=== PATIENT | male | born 1965 | race Caucasian/White ===

== ENCOUNTER 2023-04-05 14:33 | Inpatient (IN) | payer MEDICAID, SELFPAY ==
[2023-04-05] VITALS (24 sets, daily range): BP systolic 113–143; BP diastolic 74–94; PULSE 90–115; RESP 16–26; TEMP 37.2–37.4; O2SAT 93–100
--- NOTE | ~2023-04-05 | CT_ITS ---
EXAMINATION: CTA chest PE protocol DATE: 04/05/2023 20:04 INDICATION: dyspnea, cough, tachycardia, tachypnea, hypoxia TECHNIQUE: Computed tomography angiography (CTA) of the chest was performed with 100 mL Omnipaque-350 intravenous contrast timed to evaluate the pulmonary arteries. Coronal maximum intensity projection 3D-reconstructions were created by the technologist. The dose-length product (DLP) was 303.62 mGy-cm. Automated exposure control and iterative reconstruction technique were employed. COMPARISON: X-ray chest, same date; CT renal stone 12/28/2008. FINDINGS: Lung parenchyma and airways: Minimal bibasilar scar/atelectasis. Emphysematous change. Calcified gran ulomas. Minimal secretions in the trachea. Pleura: Unremarkable. Thoracic inlet, axillae and chest wall: Unremarkable. Thoracic aorta: No significant dilation. Mild arch calcification. 4 mm penetrating ulcer in the arch, depth 2-3 mm. The left vertebral artery origin is directly off the arch. Mediastinum: Normal. Heart and pericardium: Normal. Coronary artery calcifications: Mild. Upper abdomen: Renal atrophy. Simple left upper pole cyst. Nonobstructing left upper pole calcificati on. Bones: No acute osseous finding. Pulmonary arteries: Study quality: Motion artifact is present, which limits evaluation of segmental a nd more distal vessels, particularly in the lower lobes. No pulmonary emboli detected. IMPRESSION: Motion artifact limits evaluation, such that nonocclusive segmental or subsegmental emboli could be m issed. No central embolus detected. 4 mm penetrating ulcer in the aortic arch. Recommend vascular referral. Reviewed, dictated and finalized at location K. IMPRESSION: Motion artifact limits evaluation, such that nonocclusive segmental or subsegme ntal emboli could be missed. No central embolus detected. 4 mm penetrating ulcer in the aortic arch. Recommend vascular referral.
--- NOTE | ~2023-04-05 | CT_ITS ---
EXAMINATION: CT abdomen pelvis wo con DATE: 04/06/2023 15:33 INDICATION: Abdominal pain. TECHNIQUE: Computed tomography (CT) of the abdomen and pelvis was performed without intravenous contr ast. Automated exposure control and iterative reconstruction technique were employed. The dose-length product was 292.37 mGy-cm. COMPARISON: CT abdomen and pelvis 12/28/2008 FINDINGS: The visualized portions of the lung bases demonstrate mild atelectasis. There is mild emphy sema. There are trace pleural effusions. The heart size is normal. No pericardial effusion. The liver is normal. The gallbladder is contracted. The spleen, pancreas, and adrenal glands are normal. There is moderate atrophy of right kidney. There are parenchymal calcifications in right kidney. There is a 2 mm stone in right kidney. There is mild right hydronephrosis. There is a 9 mm stone in proximal r ight ureter. There are parenchymal calcifications in left kidney. There are approximately 4 stones in left kidney measuring up to 3 mm. There is a 2.4 cm cyst in left kidney. There are no dilated loops of bowel. The appendix is not visualized. There is trace pelvic ascites. There are no pathologically enlarged lymph nodes. There is severe lower lumbar spondylosis. IMPRESSION: 1. 9 mm stone in proximal right ureter with mild right hydronephrosis. 2. Bilateral nonobstructing kidney stones. Reviewed, dictated and finalized at location A.
--- NOTE | ~2023-04-05 | XR_ITS ---
EXAMINATION: XR chest 1V portable Exam Date/Time: 04/05/2023 16:15 CDT HISTORY: sob, CP, FEVER, WEAKNESS, ALL SYMPTONS FOR 4 DAYS, SMOKER Comparison: 05/05/2014. RESULT: Lines, tubes, and devices: None. Lungs and pleura: Clear. Cardiomediastinal silhouette: Stable. Other: No acute osseous or upper abdominal finding. IMPRESSION: No acute cardiopulmonary process. Reviewed, dictated and finalized at location K.
--- NOTE | 2023-04-05 15:20 | PC.NURSE ---
pt rolled himself back inside after smoking
--- NOTE | 2023-04-05 15:53 | ECG_ITS ---
Measurements Intervals [place] Rate: 108 P: 74 MO: 141 QRS: 44 QRSD: 93 T: 76 QT: 294 QTc: 394 Interpretive Statements SINUS TACHYCARDIA POSSIBLE RIGHT ATRIAL ENLARGEMENT [0.25mV P WAVE] POSSIBLE LEFT ATRIAL ENLARGEMENT [-0.1mV P WAVE IN V1/V2] POSSIBLE LEFT VENTRICULAR HYPERTROPHY [VOLTAGE CRITERIA PLUS LAE OR QRS WIDENING] NONSPECIFIC T-WAVE ABNORMALITY NO PREVIOUS ECG AVAILABLE FOR COMPARISON Electronically Signed On 04-06-2023 8:51:16 CDT by Rajni Arreaga M.D.
[2023-04-05 16:10] LABS: Basophils Absolute Auto 0.1 K/mm3 (0.0-0.1); Basophils Percent Auto 0.3 % (0.2-1.2); Eosinophils Percent Auto 0.2 % (0-4.4); Hematocrit 45.1 % (42.0-52.0); Hemoglobin 15.1 g/dL (14.0-18.0); Immature Granulocyte Absolute 0.29 K/mm3 (0.00-0.031); Immature Granulocyte Percent A 1.7 % (0-0.5); Lymphocytes Absolute Auto 0.85 K/mm3 (0.9-3.2); Lymphocytes Percent Auto 4.9 % (18.3-44.2); Mean Corpuscular HGB Conc 33.5 g/dl (32-36); Mean Corpuscular Hemoglobin 28.9 pg (26-34); Mean Corpuscular Volume 86.2 fl (80-100); Mean Platelet Volume 11.1 fl (7.4-10.4); Monocytes Absolute Auto 0.9 K/mm3 (0.1-0.6); Monocytes Percent Auto 5.3 % (2.6-8.5); Neutrophils Absolute Auto 15.2 K/mm3 (1.3-6.7); Neutrophils Percent Auto 87.6 % (45.5-73.1); Platelet Count Result 190 k/mm3 (150-375); Red Blood Count 5.23 M/mm3 (4.6-6.20); Red Cell Distribution Width 14.1 % (11.5-14.5); White Blood Count 17.3 K/mm3 (4.5-10.0)
[2023-04-05] MEDS: LACTATED RINGERS 1,000 ML 999 ML IV CONT ×2 (16:36→18:16)
[2023-04-05 17:20] LABS: Alanine Aminotransferase 27 U/L (6-50); Albumin Level 3.1 g/dL (3.5-5.1); Alkaline Phosphatase 82 U/L (38-126); Anion Gap 0 mmol/L (8-16); Aspartate Amino Transferase 31 U/L (17-59); Bilirubin,Total 0.8 mg/dL (0.2-1.3); Blood Urea Nitrogen 29 mg/dL (9-20); Calcium 8.7 mg/dL (8.4-10.2); Carbon Dioxide 27 mmol/L (22-30); Chloride 97 mmol/L (98-107); Estimated CRCL calculation 53 ml/min; Estimated Glomerular Filt Rate 48; Glucose 113 mg/dL (65-110); Magnesium 1.9 mg/dL (1.6-2.3); Potassium 3.8 mmol/L (3.4-5.0); Sodium 124 mmol/L (137-145)
[2023-04-05 17:32] LABS: Troponin I 0.019 ng/mL (0.000-0.034)
[2023-04-05 17:43] LABS: Influenza A QL RT-PCR Negative (Negative); Influenza B QL RT-PCR Negative (Negative); SARS-CoV-2 RNA PCR Negative (Negative)
--- NOTE | 2023-04-05 17:56 | ED.GENADULT ---
HPI - General Adult General Chief complaint: Shortness of Breath/Dyspnea Stated complaint: cough and SOB x 4 days - exposure to COVID Time Seen by Provider: 04/05/23 16:22 Source: patient Limitations: no limitations History of Present Illness HPI narrative: Patient is a 57-year-old male present to the emergency department complaining of cough and shortness of breath and believes that he has COVID. Patient states she has had some associated chills. Patient notes that the cough has been present for the past 4 days without any sputum production. Patient states that he had an exposure to COVID through his roommate. Patient admits to being vaccinated for COVID-19 with 2 shots without any boosters. Patient admits to some mild associated shortness of breath over the same duration as the cough in addition to a sore throat. Patient denies rhinorrhea, nasal congestion, chest pain, abdominal pain, vomiting, nausea, diarrhea, rash, dysuria, hematuria, urinary frequency, urinary urgency, numbness, weakness, ear pain, eye pain, neck pain. Patient does admit to some generalized bodyaches. Patient denies trying any medications for his cough. Patient admits to a subjective fever but has not taken his temperature. Of note patient admits to using methamphetamine regularly via smoking or snorting and admits to a history of IV drug use in the past. Related Data Allergies Allergy/AdvReac Type Severity Reaction Status Date / Time No Known Allergies Allergy Unverified 04/05/23 15:37 PMFSH Comments Patient admits to regular methamphetamine use via smoking and snorting with most recent use being a couple days ago in addition patient has a history of IV drug use. Patient admits to regular tobacco use. Patient denies alcohol consumption. Patient admits to a past surgical history of a kidney stone being removed. Patient denies any other past medical history outside of a kidney stone. Patient admits to having a primary care physician being Dr. Hayes. Patient denies any medication use. Patient denies any allergies. Exam Const: General: ill appearing Orientation/consciousness: patient oriented x3 HENMT: Head: normal to inspection Mouth: Yes dry mucous membranes Throat: posterior oropharynx normal Eyes: Conjunctivae: conjunctivae normal Pupils: Equal, round and reactive pupils present EOM: EOMs intact bilaterally Neck: Neck: no meningeal signs Resp: Effort & Inspection: normal respiratory effort and tachypneic Auscultation: clear to auscultation bilaterally, no wheezes and diminished lung sounds Cardio: Rate: tachycardic Rhythm: regular rhythm Heart sounds: Murmur heart sound present continuous and systolic GI: Inspection: non-distended GI Palp: Yes Soft to palpation, No Tenderness to palpation present (GI), No Guarding due to palpation present (GI), No Rigid due to palpation, No Hernia present, No Palpable mass present and No Rebound tenderness present Back/Spine/Pelvis: Back: no CVA tenderness Skin: General skin exam: normal color Other: diaphoretic Neuro: General: patient oriented x3, no meningeal signs and no focal motor deficits Extrem: General: no pedal edema Course Vital Signs Vital signs: Vital Signs Temperature 99.0 F 04/05/23 15:33 Pulse Rate 113 H 04/05/23 15:33 Respiratory Rate 16 04/05/23 15:33 Blood Pressure 113/94 H 04/05/23 15:33 Pulse Oximetry 100 04/05/23 15:33 Oxygen Delivery Room Air 04/05/23 15:33 Temperature 98.9 F 04/05/23 20:12 Pulse Rate 90 04/05/23 20:48 Respiratory Rate 21 H 04/05/23 20:48 Blood Pressure 135/87 04/05/23 22:00 Pulse Oximetry 100 04/05/23 22:00 Oxygen Delivery Room Air 04/05/23 15:53 Medical Decision Making MDM Narrative Medical decision making narrative: Patient is a 57-year-old male present to the emergency department with the above-stated complaint. Vital signs concerning for tachycardia. Patient appears dehydrated and did mil
[2023-04-05] MEDS: ACETAMINOPHEN 500 MG TABLET 1000 MG PO (18:13)
[2023-04-05 18:22] LABS: Lactic Acid Reflex 0.9 mmol/L (0.7-2.0)
[2023-04-05 18:23] LABS: Lipase 28 U/L (23-300)
[2023-04-05 18:24] LABS: Prothrombin Time 14.1 Seconds (11.1-14.7)
[2023-04-05 18:25] LABS: Partial Thromboplastin Time 36.7 SECONDS (22.3-36.8)
--- NOTE | 2023-04-05 18:28 | PC.NURSE ---
Pt reports urinating in the sink when asked if he had to use the restroom since nobody made it in the room after he pressed the call light
[2023-04-05] MEDS: AZITHROMYCIN 500 MG/NS 250 ML 500 MG/250 ML BAG 250 MG IVPB (18:57)
[2023-04-05 19:06] LABS: CRP 31.2 mg/dL (<1.0)
[2023-04-05 19:15] LABS: Appearance Urine Clear (Clear); Bacteria Urine None Seen /hpf; Bilirubin Urine Negative (Negative); Blood Urine 2+ (Negative); Color Urine Yellow (Yellow); Glucose Urine UA Negative (Negative); Ketones Urine Negative (Negative); Leukocyte Esterase Ur 2+ LEU/UL (Negative); Nitrate Urine Negative (Negative); Non Pathogenic Casts 0-2; Protein Urine 2+ mg/dL (Negative); Squamous Epithelial Cell Urine None seen /hpf (Few); WBC Urine 21-50 /hpf
[2023-04-05 19:20] LABS: Add Urine Microscopic? YES
[2023-04-05 19:42] LABS: NT Pro B Type Natriuretic Pept 138 pg/mL (19.9-100)
[2023-04-05 20:37] LABS: Troponin I 0.016 ng/mL (0.000-0.034)
--- NOTE | 2023-04-06 | ECHO_ITS ---
Patient Info Name: Kishan Yates Age: 57 years : 1965 Gender: Male Ht: 73 in Wt: 161 lbs BSA: 1.93 m2 HR: 83 bpm BP: 156 / 98 mmHg Heart Rhythm: Sinus Rhythm Technical Quality: Fair Exam Date: 04/06/2023 4:24 PM Exam Location: [facility] Patient Status: Inpatient Admit Date: 04/05/2023 Staff Ordering Physician: Carmen Last APRN Manager Pet: Pat Rao RDCS Attending Provider: Williams Mendoza MD Referring Physician: Berhane ARENAS; Exam Type: CA echo doppler color flow Study Info Indications - r/o endocarditis Complete two-dimensional, color flow and Doppler transthoracic echocardiogram is performed. Summary 1. Complete two-dimensional, color flow and Doppler transthoracic echocardiogram is performed. 2. Left ventricular chamber dimension is normal. 3. Left ventricular systolic function is low normal, estimated at 50-55%. 4. There is mildly increased left ventricular wall thickness. 5. The left ventricular diastolic function is normal. 6. There is mild aortic valve stenosis with a peak velocity of 154 cm/s, mean gradient of 5 mmHg, and aortic valve area of 1.8 cm2. 7. There is mild aortic valve calcification. 8. There is mild mitral valve regurgitation. 9. The mitral valve annulus is mildly calcified. 10. The mitral valve has thickened leaflets. 11. There is mild tricuspid valve regurgitation. 12. Mild pulmonary hypertension, estimated pulmonary arterial systolic pressure is 36 mmHg. Left Ventricle Left ventricular chamber dimension is normal. Left ventricular systolic function is low normal, estimated at 50-55%. There is mildly increased left ventricular wall thickness. The left ventricular diastolic function is normal. Right Ventricle Right ventricular chamber dimension is normal. Right ventricular systolic function is normal. Left Atria Left atrial chamber dimension is normal. Right Atria Right atrial chamber dimension is normal. Atrial Septum Intact interatrial septum visualized by color flow imaging. Aortic Valve The aortic valve is trileaflet. There is mild aortic valve stenosis with a peak velocity of 154 cm/s, mean gradient of 5 mmHg, and aortic valve area of 1.8 cm2. There is trace aortic valve regurgitation. There is mild aortic valve calcification. Pulmonic Valve The pulmonic valve is normal. There is no pulmonic valve stenosis. There is trace pulmonic regurgitation. Mitral Valve The mitral valve has thickened leaflets. There is no mitral valve stenosis. There is mild mitral valve regurgitation. The mitral valve annulus is mildly calcified. Tricuspid Valve The tricuspid valve leaflets are normal. There is no significant tricuspid valve stenosis. There is mild tricuspid valve regurgitation. Mild pulmonary hypertension, estimated pulmonary arterial systolic pressure is 36 mmHg. Pericardium/Pleural The pericardium appears normal. There is no pericardial effusion. Inferior Vena Cava Dilated inferior vena cava with <50% collapse upon inspiration consistent with elevated right atrial pressure, 15 mmHg. Aorta The aortic root size at the sinus of Valsalva is normal. Left Ventricular Outflow Tract Name Value Normal LVOT 2D LVOT Diameter 2.0 cm LVOT Doppler
[2023-04-06 00:30] VITALS: BP 127/73; PULSE 90; RESP 18; TEMP 36.6; O2SAT 91
[2023-04-06 02:44] VITALS: O2SAT 92
[2023-04-06 06:00] VITALS: BP 156/98; PULSE 106; RESP 18; TEMP 36.8; O2SAT 91
[2023-04-06 06:02] LABS: Estimated CRCL calculation 54 ml/min; Estimated Glomerular Filt Rate 52
--- NOTE | 2023-04-06 09:43 | PM.IMHP ---
H&P: HPI History of Present Illness Date/Time: 04/06/23 09:43 Chief Complaint: Shortness of breath Narrative: This is a 57-year-old male with a past medical history of recurrent kidney stones x3 occurrences, polysubstance abuse, and history of IV drug use. He presents to the ER with complaints of shortness of breath with exertion making it difficult for him to complete his job. He has nonproductive cough and subjective fever and chills. He does say he has some mild chest pain. He states he has not been around any sick contacts. He does use meth daily typically snorting or smoking it. He says his IV drug use was years ago. He also smokes 1 and half to 2 packs per day and he denies EtOH use. 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 He has been in detention before. He denies any past surgical history besides interventions for his kidney stones. Chest x-ray shows no acute cardiopulmonary process, CTA shows a 4 mm penetrating ulcer in the aortic arch and vascular referral is recommended. ER physician spoke with vascular surgery and they do not feel that this needs emergent intervention. He will need to follow-up with vascular surgery as an outpatient. His blood cultures are positive for Gram-negative bacilli. He does have a leukocytosis of 17 and neutrophils are 87.6%. His sodium is 124, creatinine 1.5, and CRP is elevated 31.2. His UA shows 2+ leuks, 2+ protein, 2+ blood, and wbc's 21-50 with no bacteria seen. Nephrology was consulted for the low sodium and Cardiology consulted to see if ANASTACIO is warranted for potential endocarditis as source of infection. CT abdomen and pelvis was collected later this afternoon shows a right 9 mm ureteral stone with mild hydronephrosis and nonobstructing renal stones. Urology has been consulted and recommendations are appreciated. When I see him at bedside this morning he is drowsy and difficult to get to participate in my assessment. He begrudgingly answers my questions. He appears sick. He has some mild diaphoresis and skin is warm to the touch but he does not have a fever. He does not appear in any respiratory distress. He does endorse some right lower quadrant tenderness with deep palpation. He says that he is been eating and drinking appropriately and has no issues with stooling or urinating. He does say his urine has been rather concentrated. He denies any open wounds or sores on his body. He does have a headache but denies dizziness. He says that he has some chest pain and is short of breath with exertion. Later this afternoon around back to check on him and he is sitting up alert and talking with his family. He does not recall talking with me this morning he just knows that he was grumpy and did not want to deal with anyone. He appears better after IV hydration and initiation of antibiotics. The nursing staff state that he has been somewhat difficult to deal with today. There are reports of him potentially smoking in his room. Will write for nicotine patch. He seems to be easily agitated and given his substance abuse I would not be surprised if he were to try to leave AMA. Review of Systems Review of Systems: All systems reviewed & are unremarkable except as noted in HPI and below PMFSH Past Medical History Medical History (Updated 04/06/23 @ 17:13 by Carmen Last APRN) History of intravenous drug abuse Renal stone Surgical History Surgical History (Updated 04/06/23 @ 17:14 by Carmen Last APRN) History of cystoscopy Social History Social History Smoking status: Heavy tobacco smoker Tobacco type: cigarettes Second hand tobacco smoke exposure: Yes Alcohol intake: never Substance use type: amphetamines Other substance usage details: 1 wk ago Lack of Transportation: No Lack of Food: Never True Current Housing: I Have Housing Concerned About Future Housing: No Difficulty Paying
[2023-04-06] MEDS: cefTRIAXone 2 GM/NS 100 ML 2 GM/100 ML BAG IVPB (10:11)
[2023-04-06] MEDS: SODIUM CHLORIDE 0.9% IV 1,000 ML 100 ML IV CONT (10:11)
--- NOTE | 2023-04-06 11:03 | PM.CNCAR ---
Assessment and Plan Assessment and plan (1) Sepsis: Code(s): A41.9 - Sepsis, unspecified organism Status: Acute Assessment and Plan: Management of sepsis as per primary team. We are consulted for ANASTACIO given history of IV drug use. At this time, patient only meets 1 minor criteria of the modified Bennett criteria, therefore, he does not meet diagnostic clinical criteria for either possible infective endocarditis or definite infective endocarditis. Therefore, there is no indication for ANASTACIO at this time. Recommend following blood cultures at this time. If concerned about infective endocarditis, would first obtain a transthoracic echocardiogram. (2) Penetrating ulcer of aorta: Code(s): I71.9 - Aortic aneurysm of unspecified site, without rupture Status: Acute Assessment and Plan: CTA with 4mm penetrating ulcer in the aortic arch. ER doctor discussed this with [facility], who recommended discussion with Vascular Surgery service as this is typically managed by Vascular Surgery. ER then discussed the case with [facility] Dr. Rodriges who recommended outpatient follow up with Vascular Surgery, ASA, statin. Recommend ASA 81mg once daily. Recommend high intensity statin. Recommend outpatient follow up with Vascular Surgery. (3) Coronary artery calcification seen on CAT scan: Code(s): I25.10 - Atherosclerotic heart disease of [place] coronary artery without angina pectoris Status: Acute Assessment and Plan: Recommend ASA 81mg once daily. Recommend high intensity statin. History of Present Illness History of Present Illness Consult date/time: 04/06/23 11:03 Requesting physician: Carmen Last, VANDA Consult reason: Other (4mm aortic ulceration on CTA, IVDU hx, wanted ANASTACIO) Reason For Visit: sepsis Narrative: Reason for consult: 4mm aortic ulceration on CTA, IVDU hx, wanted ANASTACIO This is a 57-year-old male with regular methamphetamine use who presented with shortness of breath that began a few days ago. Also reports coughing and overall feeling ill. Patient was initially concerned about COVID as he had exposure through his roommate. Patient is admitted for sepsis. Has tachycardia and leukocytosis. WBC of 17. Chest CTA was done in ER which showed no obvious PE (limited by motion artifact), 4mm penetrating ulcer in the aortic arch, mild coronary artery calcifications. Regarding the penetrating ulcer in aortic arch, ER doctor discussed this with [facility], who recommended discussion with Vascular Surgery service as this is typically managed by Vascular Surgery. ER then discussed the case with [facility] Dr. Rodriges who recommended outpatient follow up with Vascular Surgery, ASA, statin. Blood cultures are currently pending. Review of Systems Review of Systems: All systems reviewed & are unremarkable except as noted in HPI and below (HPI) [facility] Social History Social History Smoking status: Heavy tobacco smoker Tobacco type: cigarettes Second hand tobacco smoke exposure: Yes Alcohol intake: never Substance use type: amphetamines Other substance usage details: 1 wk ago Lack of Transportation: No Lack of Food: Never True Current Housing: I Have Housing Concerned About Future Housing: No Difficulty Paying Gas/Electric Bills: No Difficulty Paying for Meds: No Currently Unemployed: No Education: High School Diploma/GED Difficulty w/ Childcare or Family Care: No Spiritual care concerns: No Meds Home Medications and Allergies Home Medications Medication Instructions Recorded Confirmed Type No Home Medications 04/06/23 04/06/23 History Allergies Allergy/AdvReac Type Severity Reaction Status Date / Time No Known Allergies Allergy Unverified 04/05/23 15:37 Vital Signs Vital Signs - 24 hr 04/05/23 15:33 04/05/23 15:53 04/05/23 18:18 Temperature 37.2 C
--- NOTE | 2023-04-06 11:30 | PM.CNNEP ---
Assessment and Plan Assessment and plan (1) Hyponatremia: Code(s): E87.1 - Hypo-osmolality and hyponatremia Status: Acute Assessment and Plan: acute versus chronic versus acute on chronic??? unfortunately, no other recent labs to compare to... however, noted improvement in sodium just with IVF resuscitation arguing in favor of hypovolemia/volume depletion goal of therapy would be to keep rate of change in sodium nor more than 6 - 8mmol/L in 24 hoours (no higher than 132mmol/L by 5pm today) will cut back on normal saline and he may need D5W check TSH, cortisol, SPEP and UPEP follow trend of repeat sodium levels (2) Elevated serum creatinine: Code(s): R79.89 - Other specified abnormal findings of blood chemistry Status: Acute Assessment and Plan: acute versus chronic versus acute on chronic??? check urine electrolytes follow-up on CT abd/pelvis imaging UA significant for blood and protein follow-up on urine culture quantitate proteinuria follow-up on urine studies follow trend of repeat labs and UOP I will continue to follow the patient with you while remains hospitalized and make further recommendations during his hospital course. Thank you for allowing returns for this pain care of this patient. History of Present Illness Reason for Consult Consult date: 04/06/23 Reason for consult: hyponatremia Chief Complaint Chief complaint: sepsis History of Present Illness Narrative: The patient is a 57-year-old male with a past medical history as outlined below who presented to [facility] Emergency room with complaints of cough and associated shortness of breath with a concern that he may have COVID-19 infection. The patient reports that he has had a nonproductive cough for the last 4-5 days in association with chills. He states that he found out recently that his roommate tested positive for cope at 19. He however admits that he was vaccinated for COVID-19 with the initial 2 vaccination injections but has not had a booster shots since that time. Other associated symptoms include mild shortness of breath for the same duration of time in association with a sore throat. He reports no rhinorrhea, nasal congestion, chest pain, abdominal pain, nausea, vomiting, diarrhea, diaphoresis, But does admit to some generalized body aches. He reports some evidence of subjective fevers but does not have a documented temperature as a never took it. Given all these symptoms, he presented to the ER for further assessment Workup and evaluation emergency room demonstrated the patient to be somewhat ill-appearing and his vital signs for concerning for mild tachypnea and tachycardia. There was concern for possible sepsis so the patient was initiated on aggressive IV fluid resuscitation and given Tylenol for his body aches. Routine blood tests were significant for a mildly elevated creatinine, depressed sodium level /hyponatremia, and elevated white blood cell count of 17.3. Influenza A/influenza B/COVID testing was negative. On further questioning the patient mid to using methamphetamines regularly and via smoking and or snorting and also admits to a history of IV drug abuse. This subsequently led to further CT imaging which demonstrated a 4 mm penetrating ulcer in the aortic arch. the ER physician consulted Cardiothoracic Surgery as well as [facility] and was determined that outpatient follow-up would be needed but no urgent intervention was required. After appropriate antibiotics were obtained, he was started on broad-spectrum IV antibiotic therapy and subsequently admitted to the hospital for further evaluation and therapy. Since admission, his sodium level appears to improved with IV fluid resuscitation from 124 millimoles per L on admission up to 127 millimoles per L by AM labs. Furthermore, his tachycardia and tachypnea seems to have improved following the aforementioned aggr
[2023-04-06 12:00] VITALS: PULSE 90
[2023-04-06 12:02] LABS: Sodium 127 mmol/L (137-145)
[2023-04-06 13:35] VITALS: BP 140/78; PULSE 113; RESP 16; TEMP 37.7; O2SAT 92
[2023-04-06] MEDS: ACETAMINOPHEN 325 MG TABLET 650 MG PO (14:37)
[2023-04-06 15:25] LABS: Sodium 131 mmol/L (137-145)
[2023-04-06 15:37] VITALS: TEMP 36.7
[2023-04-06] MEDS: DEXTROSE 5% IN WATER 250 ML IV CONT (16:10)
[2023-04-06 17:23] LABS: Sodium 127 mmol/L (137-145)
--- NOTE | 2023-04-06 18:03 | PC.NURSE ---
Lab released blood cultures of gram negative bacilli in aerobic bottle only. patient just left AMA. Carmen notified. She had talked with the patient prior to him leaving AMA and had informed him of the bacteria in the blood and the risks of leaving. Patient verbalized being aware of the risks of leaving but is adamant that he is leaving
== END 2023-04-06 17:46 | disposition left against medical advice (07) | DRG 720 ==
LOC: ANHED 19:17 → ANH3MEDSUR 23:53
PROVIDERS: Internal Medicine Nephrology; Preventive Medicine Aerospace Medicine; Admitting Provider Internal Medicine; Emergency Provider Student in an Organized Health Care Education/Training Program; PCP Internal Medicine Infectious Disease; Visit Provider Nurse Practitioner Acute Care
DX: A41.9 Sepsis, unspecified organism (principal); E87.1 Hypo-osmolality and hyponatremia; F17.210 Nicotine dependence, cigarettes, uncomplicated; I25.10 Atherosclerotic heart disease of native coronary artery without angina pectoris; I71.9 Aortic aneurysm of unspecified site, without rupture; F15.90 Other stimulant use, unspecified, uncomplicated; Z20.822 Contact with and (suspected) exposure to COVID-19
CPT/HCPCS: 36415; 71045; 71275; 74176; 80053; 81001; 82565; 83605; 83690; 83735; 83880; 84295; 84484; 85025; 85610; 85730; 86140; 87040; 87077; 87086; 87186; 87636; 93005; 93306; 96361; 96365; 96366; 96367; 99223; 99285; A9270; J0456; J0696; J3370; J7030; J7060; J7120; Q9967